=== PATIENT | male | born 1975 | race African-American/Black ===

== ENCOUNTER 2017-05-12 16:16 | Emergency (ER) | payer OTHER ==
[~2017-05-12] VITALS: Ht 177.8 cm; Wt 75.0 kg
[~2017-05-12 16:16] MED LIST: PHENERGAN W/CO120 ML PO; PREDNISONE20 MG PO
[2017-05-12 16:19] VITALS: BP 98/62; TEMP 96.8
[2017-05-12 17:24] VITALS: PULSE 76
== END 2017-05-12 17:24 | disposition home or self-care (01) ==
LOC: COL.ER 16:16
DX: R51 Headache (principal); J45.909 Unspecified asthma, uncomplicated; F17.290 Nicotine dependence, other tobacco product, uncomplicated
CPT/HCPCS: J1200; J1885; J2765